=== PATIENT | male | born 1975 | race Caucasian/White ===

== ENCOUNTER → 2020-06-21 | Outpatient (CLI) | payer SELFPAY ==
[~2020-06-21] MED LIST: ADDERALL 20 MG20 MG PO; MEDROL DOSEPAK4 MG PO; MOTRIN800 MG PO; PERCOCET 325 MG1 TA2 PO; TRAMADOL HCL50 MG PO; TRIMOX500 MG PO; WELLBUTRIN75 MG PO; ZYRTEC10 MG PO
== END | disposition home or self-care (01) ==
LOC: COVID19 11:25
PROVIDERS: ATTEND Student in an Organized Health Care Education/Training Program
DX: Z20.828 Contact with and (suspected) exposure to other viral communicable diseases (principal)

== ENCOUNTER → 2020-06-25 | Outpatient (CLI) | payer SELFPAY | LOC: COVID19 08:30 | PROVIDERS: ATTEND Internal Medicine | DX: Z20.828 Contact with and (suspected) exposure to other viral communicable diseases (principal) ==

== ENCOUNTER 2023-01-14 14:47 | Emergency (ER) | payer OTHER ==
[~2023-01-14] VITALS: Wt 113.4 kg
== END 2023-01-14 16:21 | disposition home or self-care (01) ==
LOC: ED 14:47
DX: S05.91XA Unspecified injury of right eye and orbit, initial encounter (principal); H57.89 Other specified disorders of eye and adnexa; F32.A Depression, unspecified; Z98.890 Other specified postprocedural states; W22.8XXA Striking against or struck by other objects, initial encounter; Y93.89 Activity, other specified; Y92.89 Other specified places as the place of occurrence of the external cause; Y99.0 Civilian activity done for income or pay